=== PATIENT | male | born 1970 | race Caucasian/White ===

== ENCOUNTER → 2017-04-01 | Outpatient (CLI) | payer OTHER ==
[~2017-04-01] MED LIST: MULT-506 PO; OMEG10007 PO; probiotic PO
[2017-04-01 11:03] LABS: ALT/SGPT 28 U/L (12-78); AST/SGOT 24 U/L (15-37); BLOOD UREA NITROGEN 18 mg/dl (7-18); BUN/CREATININE RATIO 15.3 (10-20); CARBON DIOXIDE 28 mmol/L (21-32); CHLORIDE 106 mmol/L (98-107); CHOLESTEROL 261 mg/dl (0-200); GLUCOSE 87 mg/dl (70-99); POTASSIUM 4.6 mmol/L (3.5-5.1); SODIUM 140 mmol/L (136-145); TRIGLYCERIDES 140 mg/dl (0-150); VERY LOW DENSITY LIPOPROT CALC 28 mg/dl
[2017-04-01 11:07] LABS: ALB/GLOB RATIO 1.9 (0.9-2); ALKALINE PHOSPHATASE 78 U/L (45-117); CHOLESTEROL/HDL RATIO 5.1; HDL CHOLESTEROL 51 mg/dl; LDL CHOLESTEROL CALCULATED 182 mg/dl
[2017-04-01 11:55] LABS: CALCIUM 9.5 mg/dl (8.5-10.1)
== END | disposition home or self-care (01) ==
LOC: C.LABBC 09:02
PROVIDERS: ATTEND Physician Assistant Medical
DX: Z00.00 Encounter for general adult medical examination without abnormal findings (principal); E78.5 Hyperlipidemia, unspecified

== ENCOUNTER → 2017-12-14 | Day surgery (SDC) | payer OTHER ==
[2017-11-30 14:34] VITALS: BMI 27.0
[~2017-12-14] VITALS: Ht 172.7 cm; Wt 82.7 kg
[~2017-12-14] MED LIST changes: +LIDOCAINE HCL 2% 2 ML VIAL (20MG/ML) ONE; +MISCCAP80 PO; -MULT-506 PO; +ONDANSETRON INJ 2 MG/ML 2 ML VIAL ONE; +PROPOFOL IV EMULSION 10 MG/ML 20 ML VIAL IV ONE; +SODIUM CHLORIDE 0.9% 500ML 500 ML IV ONE; -probiotic PO
[2017-12-14 14:35] VITALS: Ht 172.7 cm; Wt 82.7 kg
[2017-12-14 14:48] VITALS: TEMP 37
--- NOTE | 2017-12-14 15:02 | Endo History and Physical ---
History & Physical Date of Service: Dec 14, 2017. Chief Complaint: occ rectal bleeding Referring Physician: Dr. Vik Mcgee History of Present Illness 47 yo CM who presents for colonoscopy secondary to rectal bleeding. Past Surgical History Hx Cardiac Surgery: No Hx Internal Defibrillator: No Hx Pacemaker: No Hx Abdominal Surgery: No Hx of Implantable Prosthesis: No Hx Post-Op Nausea and Vomiting: Yes Hx Cancer Surgery: No Hx Thoracic Surgery: No Hx Orthopedic: Yes (RT KNEE MENISCUS REPAIR) Hx Urinary Tract Surgery: Yes (VASECTOMY AND REVERSAL) Family History None Social History Smoking Status: Never Smoker Hx Substance Use: No Hx Alcohol Use: Yes (12 DRINKS WEEKLY) Allergies Coded Allergies: No Known Allergies (Unverified , 12/14/17) Current Medications Reported Home Medications Medications Dose Route/Sig Max Daily Dose Days Date Category Reardan-3 (Fish Oil) 1 Ea Cap 1 Cap PO QPM 11/30/17 Reported Probiotic (Probiotic Product) 1 Cap Cap 1 Cap PO QPM 11/30/17 Reported Vital Signs Weight (Kilograms): 82.73 Height (Feet): 5 Height (Inches): 8 Date Time Temp Pulse Resp B/P (MAP) Pulse Ox O2 Delivery O2 Flow Rate FiO2 12/14/17 14:48 37 73 18 134/79 (97) 99 Room Air Physical Exam General Appearance: WD/WN, no apparent distress Respiratory/Chest: Auscultation: breath sounds normal Cardiovascular: Heart Auscultation: RRR Abdomen: Bowel Sounds: normal Inspection & Palpation: soft, non-distended, no tenderness, guarding & rebound Assessment and Plan Assessment: 47 yo CM who presents for colonoscopy secondary to rectal bleeding. Plan: Proceed with colonoscopy.
--- NOTE | 2017-12-14 15:24 | Discharge Instructions ---
Endoscopy Patient Instructions Date / Procedure(s) Performed Dec 14, 2017. Colonoscopy Allergy Information Coded Allergies: No Known Allergies (Unverified , 12/14/17) Discharge Date / Findings Dec 14, 2017. Internal hemorrhoids Medication Instructions OK to resume all medications today as prescribed Reported Home Medications Medications Dose Route/Sig Max Daily Dose Days Date Category [place]-3 (Fish Oil) 1 Ea Cap 1 Cap PO QPM 11/30/17 Reported Probiotic (Probiotic Product) 1 Cap Cap 1 Cap PO QPM 11/30/17 Reported Provider Instructions Activity Restrictions - No exercising or heavy lifting for 24 hours. - Do not drink alcohol the day of the procedure. - Do not drive a car or operate machinery until the day after the procedure. - Do not make any important decisions or sign important papers in 24 hours after the procedure. Following Day: - Return to full activity which may include returning to work/school. Diet Start your diet with liquids and light foods (jello, soup, juice, toast). Then eat your usual diet if not nauseated. Treatment For Common After Affects For mild abdominal pain, bloating, or excessive gas: - Rest - Eat lightly - Lie on right side Follow-Up Information Follow-up with Dr. Vik Mcgee as scheduled Anesthesia Information What You Should Know You have had a procedure that required some medicine to reduce anxiety and discomfort. This treatment is called moderate sedation. After receiving the treatment, you may be sleepy, but you will be able to breathe on your own. The effects of the treatment may last for several hours. Follow these instructions along with Activity/Diet recommendations noted above: * Do NOT do anything where dizziness or clumsiness would be dangerous. * Rest quietly at home today, then you can be up and about tomorrow. * Have a responsible person stay with you the rest of today. * You may have had an I.V. today. If so, you may take the dressing off later today. Recommendations Call your doctor if: * Trouble breathing * Continuous vomiting for more than 24 hours * Temperature above 101 degrees * Severe abdominal pain or bloating * Pain not relieved by pain medicine ordered * There is increased drainage or redness from any incision * A large amount of rectal bleeding greater than 2-3 tablespoons. (If you had a polyp/s removed or have hemorrhoids, a small amount of blood - from the rectum is to be expected.) * You have any unanswered questions or concerns. IN THE EVENT OF A SERIOUS EMERGENCY, GO TO THE NEAREST EMERGENCY ROOM Your discharge instructions were prepared by provider Main Siu. Patient Instructions Signature Page Alex Dunn Patient (or Guardian) Signature/Date: I have read and understand the instructions given to me by my caregivers. Caregiver/RN/Doctor Signature/Date: The above-named patient and/or guardian has received patient instructions on this date. + Original Patient Signature Page (only) stays with chart. Please make copy for patient.
--- NOTE | 2017-12-14 15:28 | GI REPORT ---
Procedure Date: 12/14/2017 3:04 PM Procedure: Colonoscopy Indications: Rectal bleeding Medicines: Monitored Anesthesia Care Complications: No immediate complications. Estimated Blood Loss: Estimated blood loss: none. Procedure: Pre-Anesthesia Assessment: - Prior to the procedure, a History and Physical was performed, and patient medications and allergies were reviewed. The patient's tolerance of previous anesthesia was also reviewed. The risks and benefits of the procedure and the sedation options and risks were discussed with the patient. All questions were answered, and informed consent was obtained. Prior Anticoagulants: The patient has taken no previous anticoagulant or antiplatelet agents. ASA Grade Assessment: II - A patient with mild systemic disease. After reviewing the risks and benefits, the patient was deemed in satisfactory condition to undergo the procedure. After I obtained informed consent, the scope was passed under direct vision. Throughout the procedure, the patient's blood pressure, pulse, and oxygen saturations were monitored continuously. The Scope was introduced through the anus and advanced to the terminal ileum. The colonoscopy was performed without difficulty. The patient tolerated the procedure well. The quality of the bowel preparation was good. The terminal ileum, ileocecal valve, appendiceal orifice, and rectum were photographed. Findings: The perianal and digital rectal examinations were normal. Non-bleeding internal hemorrhoids were found during retroflexion. The hemorrhoids were small. The exam was otherwise without abnormality. Impression: - Non-bleeding internal hemorrhoids. - The examination was otherwise normal. - No specimens collected. Recommendation: - Resume previous diet. - Continue present medications. - Repeat colonoscopy in 10 years for surveillance. - Return to primary care physician as previously scheduled. Main Siu, DO 12/14/2017 3:27:57 PM This report has been signed electronically. Note Initiated On: 12/14/2017 3:04 PM I attest to the content of the Intraoperative Record and orders documented therein, exceptions below
--- NOTE | 2017-12-14 15:51 | Anesthesiology Progress Note ---
Anesthesia Post Op Note Date & Time Dec 14, 2017 at 15:51 Vital Signs Pain Intensity: 0 Vital Signs Past 12 Hours Date Time Temp Pulse Resp B/P (MAP) Pulse Ox O2 Delivery O2 Flow Rate FiO2 12/14/17 15:42 68 16 129/85 (100) 98 Room Air 12/14/17 15:27 68 16 102/68 (79) 95 Room Air 12/14/17 14:48 37 73 18 134/79 (97) 99 Room Air Notes Mental Status: alert / awake / arousable, participated in evaluation Pt Amnestic to Procedure: Yes Nausea / Vomiting: adequately controlled Pain: adequately controlled Airway Patency, RR, SpO2: stable & adequate BP & HR: stable & adequate Hydration State: stable & adequate Anesthetic Complications: no major complications apparent
[2017-12-14 15:57] VITALS: BP 126/77; PULSE 58; O2SAT 98
== END | disposition home or self-care (01) ==
LOC: C.GI 14:17
PROVIDERS: ATTEND Internal Medicine
DX: K62.5 Hemorrhage of anus and rectum (principal); K64.8 Other hemorrhoids

== ENCOUNTER → 2018-04-07 | Outpatient (CLI) | payer OTHER ==
[~2018-04-07] MED LIST changes: -LIDOCAINE HCL 2% 2 ML VIAL (20MG/ML) ONE; -ONDANSETRON INJ 2 MG/ML 2 ML VIAL ONE; -PROPOFOL IV EMULSION 10 MG/ML 20 ML VIAL IV ONE; -SODIUM CHLORIDE 0.9% 500ML 500 ML IV ONE
[2018-04-07 11:19] LABS: BASO % 0.6 %; BASO ABS # 0.02 K/uL (0-0.2); EOS % 0.6 %; EOS ABS # 0.02 K/uL (0-0.5); HEMATOCRIT 41.5 % (42-52); HEMOGLOBIN 14.2 g/dL (14.0-18.0); LYMPH ABS # 1.13 K/uL (1.2-3.4); MEAN CELL VOLUME 91.8 fL (80-100); MEAN CORPUSCULAR HEMOGLOBIN 31.4 pg (25-34); MEAN CORPUSCULAR HGB CONC 34.2 g/dl (32-36); MONO % 8.8 %; NEUT ABS # 1.95 K/uL (1.4-6.5); PLATELET COUNT 252 K/uL (130-400); RED CELL DISTRIBUTION WIDTH CV 12.7 % (11.5-14.5); RED CELL DISTRIBUTION WIDTH SD 42.3 fL (36.4-46.3); WHITE BLOOD COUNT 3.42 K/uL (4.8-10.8)
[2018-04-07 11:49] LABS: ALBUMIN 4.1 gm/dl (3.4-5.0); ALKALINE PHOSPHATASE 104 U/L (45-117); ALT/SGPT 27 U/L (12-78); AST/SGOT 30 U/L (15-37); BLOOD UREA NITROGEN 14 mg/dl (7-18); CALCIUM 8.6 mg/dl (8.5-10.1); CARBON DIOXIDE 26 mmol/L (21-32); CHOLESTEROL 219 mg/dl (0-200); GLUCOSE 80 mg/dl (70-99); LDL CHOLESTEROL CALCULATED 148 mg/dl; POTASSIUM 4.4 mmol/L (3.5-5.1); SODIUM 137 mmol/L (136-145); TOTAL PROTEIN 6.9 gm/dl (6.4-8.2)
== END | disposition home or self-care (01) ==
LOC: C.LABBC 08:30
PROVIDERS: ATTEND Internal Medicine
DX: Z00.00 Encounter for general adult medical examination without abnormal findings (principal); E78.5 Hyperlipidemia, unspecified; R03.0 Elevated blood-pressure reading, without diagnosis of hypertension; I73.00 Raynaud's syndrome without gangrene

== ENCOUNTER 2020-12-20 12:37 | Inpatient (IN) ==
--- NOTE | 2020-12-20 12:44 | Emergency Department Note ---
Impression & Plan Vertebral artery dissection, Transient visual loss of left eye ED Provider Note NAME: ELIANA MCCLURE AGE: 50 SEX: M : 1970 ARRIVES VIA: Walk-In INFORMANT: Patient, ED PROVIDER(S): John Boone MD Chief Complaint: Visual disturbance, loss of vision HPI: Patient does present with concern for loss of vision in the temporal aspect of his left eye. The patient states that this occurred about 20 minutes ago and has since resolved and improved over the same time period. The patient denies any fevers chills chest pain shortness of breath nausea or vomiting. Patient denies any headache. The patient states he may have some very mild nonspecific neck discomfort but states he did do a kettle grimaldo workout yesterday. The patient states he does do [employer] but had no complaints yesterday. The patient denies any numbness tingling or weakness. The patient does use contact lenses. Patient denies any eye pain double vision or blurry vision. No prior history of seizures. Patient denies any recent head trauma. Patient does have a history of hypertension hyperlipidemia. Patient does not take any medications other than supplemental fish oil for hyperlipidemia. Patient does not use any tobacco but has approximate 12 drinks per week. Remote history of childhood migraines which she grew out of. Patient states this does not feel like a migraine. Patient denies any floaters or flashes in his vision. ROS: See HPI for pertinent positives and negatives. A total of 10 systems were reviewed and otherwise negative. Past medical history: See below Surgical history: See below Social history: See below Physical Exam: GENERAL: Wearing a mask. NAD, non-toxic. EYE EXAM: Normal conjunctiva. PERRL, no anisocoria and EOM's grossly intact w/o pain. No APD, 20/25 bilaterally, no obvious hyphema or hypopyon. No proptosis or periorbital edema or erythema. No visual field deficits. Central vision is normal. NECK: Supple, no nuchal rigidity, no adenopathy, non-tender. No signs of meningismus. LUNGS: Clear to auscultation. Normal chest wall mechanics. HEART: NSR, no MRG. ABDOMEN: Abdomen soft, non-tender, normo-active bowel sounds, no masses, no rebound or guarding. BACK: No CVA TTP. SKIN: No rashes and no bruising. UPPER EXTREMITIES: Upper extremities are grossly normal. LOWER EXTREMITIES: Grossly normal, no edema. NEURO EXAM: A&O x3, cranial nerves II-XII grossly intact, normal speech, moves all 4 extremities on command w/o issue. Differential diagnoses: Infection, dehydration, metabolic abnormality, hypo/hyperglycemia, electrolyte disturbance, anemia, hypoxia, cardiac sources, intracerebral event, toxicologic, neurologic,conjunctivitis, trauma, corneal abrasion, hyphema, glaucoma, iritis, corneal ulcer, dendrite, CRAO, CRVO, vitreous detachment, retinal detachment, as well as other pathologies. Course: Patient was seen and evaluated the bedside. Full history physical exam was performed. EKG: Indication: Vision loss Normal sinus rhythm, rate of 61, normal intervals, left axis deviation, T wave inversion in lead III, no ST changes. Imaging Studies: Radiology results as stated below per my review in the radiologist's interpretation: CT head/brain wo con CLINICAL HISTORY: L eye lateral hemianopsia, transient COMPARISON STUDY: No previous studies for comparison. TECHNIQUE: Axial CT of the brain is performed from the vertex to the skull base. IV contrast was not administered for this examination. A dose lowering technique was utilized adhering to the principles of ALARA. CT DOSE: FINDINGS: No intra or extra-axial mass lesions are visualized. There is no CT evidence of acute cortical infarction. There is no evidence of midline shift. There is no acute hemorrhage. No calvarial fractures are visualized. There is no evidence of pathologic ventricular dilatation. There is no evidence of acute sinusitis IMPRESSION: No acute intracranial findings ACT 112: Negative or not required by law. Electronically signed by: John Villalta M.D. 12/20/2020 2:26 PM Dictated: 12/20/20 1422 Transcribed: 12/20/[address] angio head w con CLINICAL HISTORY: L eye lateral hemianopsia, transient TECHNIQUE: CT angiography of the head was performed in a dynamic helical fashion during intravenous administration of 120 cc of Optiray 320. MIP imaging was performed. A dose lowering technique was utilized adhering to the principles of ALARA. CT DOSE: 1209.39 mGy.cm COMPARISON STUDY: No previous studies for comparison. FINDINGS: There are no lesion suspicious for aneurysm. There are no major intracranial branch occlusions. The dural venous sinuses appear patent. There is a contour deformity of the right vertebral artery at the C2 level suspicious for dissection. There is a left maxillary sinus retention cyst IMPRESSION: 1. No evidence of aneurysm 2. 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 ACT 112: Negative or not required by law. Electronically signed by: John Villalta M.D. 12/20/2020 2:34 PM Dictated: 12/20/20 1431 Transcribed: 12/20/[address] angio neck with con CLINICAL HISTORY: L eye lateral hemiL eye lateral hemianopsiaanopsia COMPARISON STUDY: No previous studies for comparison. TECHNIQUE: CT angiography was performed from the aortic arch to the skull base. MIP imaging was performed. The patient was scanned in a dynamic helical fashion during intravenous administration of 120 cc of Optiray 320. A dose lowering technique was utilized adhering to the principles of ALARA. CT DOSE: Technique: CT angiogram of the carotid and vertebral arteries was obtained using intravenous contrast and 3-D reconstruction. NASCET criteria was utilized. Findings: There is mild ectasia of descending thoracic aorta which measures 36 mm. The right carotid revealed no evidence of aneurysm and no evidence of dissection. There is no evidence of hemodynamic significant stenosis. The left carotid revealed no evidence of hemodynamic significant stenosis. There is no evidence of aneurysm. There is no evidence of dissection. There is no evidence of hemodynamically significant vertebral stenosis. There is a caliber change of the distal right vertebral artery at the C2 and C1 level have a configuration suspicious for a vertebral artery dissection. IMPRESSION: 1. No evidence of hemodynamically significant carotid stenosis 2. Caliber change with angular margins of the distal right vertebral artery at the C2 and C1 levels, suspicious for a vertebral artery dissection ACT 112: Negative or not required by law. Electronically signed by: John Villalta M.D. 12/20/2020 2:31 PM Dictated: 12/20/20 1426 Transcribed: 12/20/20 1426 MRI OF THE BRAIN WITHOUT CONTRAST CLINICAL HISTORY: Visual loss. Possible right vertebral artery dissection COMPARISON STUDY: CT scan performed the same day FINDINGS: Sagittal T1, axial diffusion, proton density and T2 weighted axial, coronal FLAIR, and axial T1-weighted images were acquired. No intra or extra-axial mass lesions are visualized Axial diffusion-weighted images reveal no evidence of acute or subacute infarcti on. There is no evidence of ventricular dilatation. Proton density T2-weighted and FLAIR images reveal no significant intraparenchymal signal abnormalities. Thin section sequences through the C2 level, confirm the presence of a right vertebral artery dissection. Inflammatory changes are present within the left maxillary sinus. IMPRESSION: 1. No evidence of intracranial mass on this noncontrast study 2. No evidence of acute or subacute infarction 3. This study confirms the presence of a right vertebral artery dissection at the C2 level. ACT 112: Negative or not required by law. Electronically signed by: John Villalta M.D. 12/20/2020 5:44 PM Dictated: 12/20/201741 Transcribed: 12/20/201741 Cardiac monitoring: An order was placed for continuous cardiac monitoring. The monitor shows a rate of 70 with sinus rhythm. MDM: Patient does present with concern for transient left-sided vision loss. Blood work was obtained along with an EKG troponin chest x-ray CT of the head and CT angiography of the head neck. Patient has an NIH of 0 on presentation. EKG nonischemic. Patient has a normal white count H&H and platelet count. Coags unremarkable. The patient CT that is negative. CT angiography is did show concern for right- sided vertebral dissection. I did speak with neurology Dr. Fernandez who stated that antiplatelet versus heparin treatment may be equivocal. He stated that if there were signs seen for acute stroke on MRI of the consider the heparin but if it is negative for stroke he would only consider antiplatelet therapy. He did recommend baby aspirin currently. I did speak with the on-call hospitalist and the patient was admitted to Dr. Clay MD [facility]. MRI shows no evidence of acute or subacute infarction or mass. It did confirm the right vertebral artery dissection. Past Med/Surg History Medical History History of esophageal reflux Surgical History H/O arthroscopic knee surgery H/O vasectomy Family History Father Coronary heart disease Hypertension Dyslipidemia Mother Breast cancer Dyslipidemia Ovarian cancer Brother Dyslipidemia Social History Smoking Status: Never smoker Hx Alcohol Use: Yes Hx Substance Use: No Preferred Language: Scottish marital status: Current Living Situation: Spouse current occupational status: employed Feels Safe at Home: Yes Allergies Allergies Allergy/AdvReac Type Severity Reaction Status Date / Time No Known Allergies Allergy Unverified 12/20/20 13:23 Home Meds Home Medications Medication Instructions Recorded Confirmed No Known Home Medications 10/03/19 12/20/20 Results & Data (ED) Vital Signs Vital Signs - 24 hr 12/20/20 12:40 12/20/20 12:58 12/20/20 13:11 Temperature 36.6 C Temperature Source Oral Pulse Rate 67 65 Pulse Rate [Left Finger] 70 Pulse Rate from SpO2 Sensor 65 Pulse Rhythm Regular Pulse Rhythm [Left Finger] Regular Pulse Strength Normal Pulse Strength [Left Finger] Normal Respiratory Rate 18 17 20 Respiratory Effort / Characteristics Non-Labored Spontaneous Non-Labored Respiratory Depth Normal Normal Respiratory Pattern Regular Regular Blood Pressure 162/85 H 139/86 Blood Pressure [Right Arm] 139/86 Blood Pressure Mean 110 103 Blood Pressure Mean [Right Arm] 103 Blood Pressure Position Sitting Blood Pressure Position [Right Arm] Sitting Pulse Oximetry 100 97 98 Oxygen Delivery Method Room Air Room Air Sepsis Recent Fever Within 48 Hours No Sepsis New/Unexplained Change in Mental Status No Sepsis Action Taken by Nursing No Action Required 12/20/20 13:50 12/20/20 17:19 Temperature Temperature Source Pulse Rate 63 Pulse Rate [Left Finger] Pulse Rate from SpO2 Sensor 64 82 Pulse Rhythm Pulse Rhythm [Left Finger] Pulse Strength Pulse Strength [Left Finger] Respiratory Rate 20 Respiratory Effort / Characteristics Respiratory Depth Respiratory Pattern Blood Pressure 130/80 130/84 Blood Pressure [Right Arm] Blood Pressure Mean 96 99 Blood Pressure Mean [Right Arm] Blood Pressure Position Blood Pressure Position [Right Arm] Pulse Oximetry 97 98 Oxygen Delivery Method Sepsis Recent Fever Within 48 Hours Sepsis New/Unexplained Change in Mental Status Sepsis Action Taken by Residential Medications Current Medication List: was personally reviewed by me Laboratory Data Attestation: I reviewed the patient's lab results. Result diagrams: 12/20/20 13:06 12/20/20 14:00 Lab Results 12/20/20 12/20/20 12/20/20 Range/Units 13:03 13:06 13:06 WBC 4.87 (4.8-10.8) K/uL RBC 4.50 L (4.7-6.1) M/uL Hgb 14.8 (14.0-18.0) g/dL POC Hgb (14.0-18.0) g/dl Hct 42.0 (42-52) % POC Hct (42-52) % MCV 93.3 (80-100) fL MCH 32.9 (25-34) pg MCHC 35.2 (32-36) g/dL RDW Std Deviation 42.1 (36.4-46.3) fL RDW Coeff of Gabriel 12.4 (11.5-14.5) % Plt Count 278 (130-400) K/uL MPV 10.2 (7.4-10.4) fL Immature Gran % (Auto) 0.0 % Neut % (Auto) 56.7 % Lymph % (Auto) 34.9 % [place] % (Auto) 7.4 % Eos % (Auto) 0.4 % Baso % (Auto) 0.6 % Neut # (Auto) 2.76 (1.4-6.5) K/uL Lymph # (Auto) 1.70 (1.2-3.4) K/uL [place] # (Auto) 0.36 (0.11-0.59) K/uL Eos # (Auto) 0.02 (0-0.5) K/uL Baso # (Auto) 0.03 (0-0.2) K/uL Immature Gran # (Auto) 0.00 (0.00-0.02) K/uL PT 11.1 (9.0-12.0) Seconds INR 1.1 (0.9-1.1) APTT 27.7 (21.0-31.0) Seconds PTT Ratio 1.0 POC Sodium (135-144) mmol/L Sodium (136-145) mmol/L POC Potassium (3.3-5.0) mmol/L Potassium (3.5-5.1) mmol/L POC Chloride (101-112) mmol/L Chloride (98-107) mmol/L Carbon Dioxide (21-32) mmol/L POC Total CO2 (24-31) mmol/L Anion Gap (3-11) POC Anion Gap (16-25) mmol/L POC BUN (7-18) mg/dl BUN (7-18) mg/dl Creatinine (0.6-1.4) mg/dl POC Creatinine (0.6-1.3) mg/dl Est Cr Clr Drug Dosing ml/min Est GFR ( Amer) Est GFR (Non-Af Amer) BUN/Creatinine Ratio (10-20) Glucose (70-99) mg/dl POC Glucose 92 (70-99) mg/dl POC Glucose (other) (70-99) mg/dl Calcium (8.5-10.1) mg/dl POC Ioniz Calcium Edy (1.12-1.32) mmol/l Magnesium (1.8-2.4) mg/dl Total Bilirubin (0.2-1) mg/dl AST (15-37) U/L ALT (12-78) U/L Alkaline Phosphatase (45-117) U/L Troponin I (0-0.045) ng/ml Total Protein (6.4-8.2) gm/dl Albumin (3.4-5.0) gm/dl Globulin (2.5-4.0) gm/dl Albumin/Globulin Ratio (0.9-2) COVID-19 Eval Order SARS-CoV-2, RNA, NAAT (NEGATIVE) 12/20/20 12/20/20 12/20/20 Range/Units 14:00 14:07 17:20 WBC (4.8-10.8) K/uL RBC (4.7-6.1) M/uL Hgb (14.0-18.0) g/dL POC Hgb 12.9 L (14.0-18.0) g/dl Hct (42-52) % POC Hct 38 L (42-52) % MCV (80-100) fL MCH (25-34) pg MCHC (32-36) g/dL RDW Std Deviation (36.4-46.3) fL RDW Coeff of Gabriel (11.5-14.5) % Plt Count (130-400) K/uL MPV (7.4-10.4) fL Immature Gran % (Auto) % Neut % (Auto) % Lymph % (Auto) % [place] % (Auto) % Eos % (Auto) % Baso % (Auto) % Neut # (Auto) (1.4-6.5) K/uL Lymph # (Auto) (1.2-3.4) K/uL [place] # (Auto) (0.11-0.59) K/uL Eos # (Auto) (0-0.5) K/uL Baso # (Auto) (0-0.2) K/uL Immature Gran # (Auto) (0.00-0.02) K/uL PT (9.0-12.0) Seconds INR (0.9-1.1) APTT (21.0-31.0) Seconds PTT Ratio POC Sodium 141 (135-144) mmol/L Sodium 141 (136-145) mmol/L POC Potassium 4.8 (3.3-5.0) mmol/L Potassium (3.5-5.1) mmol/L POC Chloride 106 (101-112) mmol/L Chloride 112 H (98-107) mmol/L Carbon Dioxide 24 (21-32) mmol/L POC Total CO2 25 (24-31) mmol/L Anion Gap 5.0 (3-11) POC Anion Gap 16.0 (16-25) mmol/L POC BUN 18 (7-18) mg/dl BUN 13 (7-18) mg/dl Creatinine 0.89 (0.6-1.4) mg/dl POC Creatinine 0.8 (0.6-1.3) mg/dl Est Cr Clr Drug Dosing 106.9 ml/min Est GFR ( Amer) 117.2 Est GFR (Non-Af Amer) 101.1 BUN/Creatinine Ratio 15.0 (10-20) Glucose 78 (70-99) mg/dl POC Glucose (70-99) mg/dl POC Glucose (other) 79 (70-99) mg/dl Calcium 8.0 L (8.5-10.1) mg/dl POC Ioniz Calcium Edy 1.07 L (1.12-1.32) mmol/l Magnesium (1.8-2.4) mg/dl Total Bilirubin 0.6 (0.2-1) mg/dl AST (15-37) U/L ALT 26 (12-78) U/L Alkaline Phosphatase 61 (45-117) U/L Troponin I < 0.015 (0-0.045) ng/ml Total Protein 6.4 (6.4-8.2) gm/dl Albumin 3.6 (3.4-5.0) gm/dl Globulin 2.8 (2.5-4.0) gm/dl Albumin/Globulin Ratio 1.3 (0.9-2) COVID-19 Eval [facility] SARS-CoV-2, RNA, NAAT (NEGATIVE) 12/20/20 Range/Units 17:20 WBC (4.8-10.8) K/uL RBC (4.7-6.1) M/uL Hgb (14.0-18.0) g/dL POC Hgb (14.0-18.0) g/dl Hct (42-52) % POC Hct (42-52) % MCV (80-100) fL MCH (25-34) pg MCHC (32-36) g/dL RDW Std Deviation (36.4-46.3) fL RDW Coeff of Gabriel (11.5-14.5) % Plt Count (130-400) K/uL MPV (7.4-10.4) fL Immature Gran % (Auto) % Neut % (Auto) % Lymph % (Auto) % [place] % (Auto) % Eos % (Auto) % Baso % (Auto) % Neut # (Auto) (1.4-6.5) K/uL Lymph # (Auto) (1.2-3.4) K/uL [place] # (Auto) (0.11-0.59) K/uL Eos # (Auto) (0-0.5) K/uL Baso # (Auto) (0-0.2) K/uL Immature Gran # (Auto) (0.00-0.02) K/uL PT (9.0-12.0) Seconds INR (0.9-1.1) APTT (21.0-31.0) Seconds PTT Ratio POC Sodium (135-144) mmol/L Sodium (136-145) mmol/L POC Potassium (3.3-5.0) mmol/L Potassium (3.5-5.1) mmol/L POC Chloride (101-112) mmol/L Chloride (98-107) mmol/L Carbon Dioxide (21-32) mmol/L POC Total CO2 (24-31) mmol/L Anion Gap (3-11) POC Anion Gap (16-25) mmol/L POC BUN (7-18) mg/dl BUN (7-18) mg/dl Creatinine (0.6-1.4) mg/dl POC Creatinine (0.6-1.3) mg/dl Est Cr Clr Drug Dosing ml/min Est GFR ( Amer) Est GFR (Non-Af Amer) BUN/Creatinine Ratio (10-20) Glucose (70-99) mg/dl POC Glucose (70-99) mg/dl POC Glucose (other) (70-99) mg/dl Calcium (8.5-10.1) mg/dl POC Ioniz Calcium Edy (1.12-1.32) mmol/l Magnesium (1.8-2.4) mg/dl Total Bilirubin (0.2-1) mg/dl AST (15-37) U/L ALT (12-78) U/L Alkaline Phosphatase (45-117) U/L Troponin I (0-0.045) ng/ml Total Protein (6.4-8.2) gm/dl Albumin (3.4-5.0) gm/dl Globulin (2.5-4.0) gm/dl Albumin/Globulin Ratio (0.9-2) COVID-19 Eval Order SARS-CoV-2, RNA, NAAT NEGATIVE (NEGATIVE) Administered Medications Discontinued Medications Aspirin (Aspirin Chew 324 Mg) 81 mg PO NOW STA Stop: 12/20/20 14:49 Last Admin: 12/20/20 17:47 Dose: Not Given Documented by: [id number] Aspirin (Aspirin 81 Mg Chew) Confirm Administered Dose 81 mg .ROUTE .STK-MED ONE Stop: 12/20/20 17:46 Last Admin: 12/20/20 17:47 Dose: 81 mg Documented by: [id number] Gadobutrol (Gadobutrol 65ml Vial) 8.5 ml IV ONCE ONE Stop: 12/20/20 17:37 Last Admin: 12/20/20 17:36 Dose: 8.5 ml Documented by: [id number] Lorazepam (Ativan) 1 mg in 2 mls @ 2 mls/min IV NOW STA Stop: 12/20/20 15:46 Last Admin: 12/20/20 15:55 Dose: 2 mls/min Documented by: [id number] Calcium Gluconate 2,000 mg/ (Sodium Chloride) 70 mls @ 280 mls/hr IV NOW STA Stop: 12/20/20 17:05 Last Admin: 12/20/20 17:43 Dose: 280 mls/hr Documented by: [id number] Ioversol (Optiray 320 125ml) 120 ml IV ONCE ONE Stop: 12/20/20 14:17 Last Admin: 12/20/20 14:17 Dose: 120 ml Documented by: [id number] Discharge Plan Visit Data Chief Complaint: Visual Disturbance Stated Complaint: LOSS OF VISION ED Provider: John Boone Discharge Problem: Vertebral artery dissection, Transient visual loss of left eye Forms Stand Alone Forms: [facility] [address] [facility] Prescriptions Prescriptions: No Action No Known Home Medications RF: 0
[2020-12-20 13:34] LABS: Basophils # (auto) 0.03 K/uL (0-0.2); Basophils % (auto) 0.6 %; Eosinophils # (auto) 0.02 K/uL (0-0.5); Eosinophils % (auto) 0.4 %; Hemoglobin 14.8 g/dL (14.0-18.0); Lymphocytes % (auto) 34.9 %; Mean Corpuscular Hemoglobin 32.9 pg (25-34); Mean Corpuscular Hgb Conc 35.2 g/dL (32-36); Mean Corpuscular Volume 93.3 fL (80-100); Mean Platelet Volume 10.2 fL (7.4-10.4); Monocytes # (auto) 0.36 K/uL (0.11-0.59); Monocytes % (auto) 7.4 %; Neutrophils # (auto) 2.76 K/uL (1.4-6.5); Neutrophils % (auto) 56.7 %; Platelet Count 278 K/uL (130-400); RDW Coefficient of Variation 12.4 % (11.5-14.5); RDW Standard Deviation 42.1 fL (36.4-46.3); White Blood Count 4.87 K/uL (4.8-10.8)
[2020-12-20 13:47] LABS: INR 1.1 (0.9-1.1); Partial Thromboplastin Time 27.7 Seconds (21.0-31.0); Prothrombin Time 11.1 Seconds (9.0-12.0)
[2020-12-20] MEDS ORDERED: OPTIRAY 320 125ml IV ONE (14:16)
[2020-12-20 14:20] LABS: iSTAT Creatinine 0.8 mg/dl (0.6-1.3); iSTAT Hemoglobin 12.9 g/dl (14.0-18.0); iSTAT Ionized Calcium 1.07 mmol/l (1.12-1.32); iSTAT Potassium 4.8 mmol/L (3.3-5.0)
--- NOTE | 2020-12-20 14:27 | CT Scan Report ---
CT head/brain wo con CLINICAL HISTORY: L eye lateral hemianopsia, transient COMPARISON STUDY: No previous studies for comparison. TECHNIQUE: Axial CT of the brain is performed from the vertex to the skull base. IV contrast was not administered for this examination. A dose lowering technique was utilized adhering to the principles of ALARA. CT DOSE: FINDINGS: No intra or extra-axial mass lesions are visualized. There is no CT evidence of acute cortical infarc tion. There is no evidence of midline shift. There is no acute hemorrhage. No calvarial fractures ar e visualized. There is no evidence of pathologic ventricular dilatation. There is no evidence of acute sinusitis IMPRESSION: No acute intracranial findings ACT 112: Negative or not required by law. Electronically signed by: John Villalta M.D. 12/20/2020 2:26 PM
--- NOTE | 2020-12-20 14:32 | CT Scan Report ---
CT angio neck with con CLINICAL HISTORY: L eye lateral hemiL eye lateral hemianopsiaanopsia COMPARISON STUDY: No previous studies for comparison. TECHNIQUE: CT angiography was performed from the aortic arch to the skull base. MIP imaging was perfo rmed. The patient was scanned in a dynamic helical fashion during intravenous administration of 120 c c of Optiray 320. A dose lowering technique was utilized adhering to the principles of ALARA. CT DOSE: Technique: CT angiogram of the carotid and vertebral arteries was obtained using intravenous contrast and 3-D reconstruction. NASCET criteria was utilized. Findings: There is mild ectasia of descending thoracic aorta which measures 36 mm. The right carotid revealed no evidence of aneurysm and no evidence of dissection. There is no evidenc e of hemodynamic significant stenosis. The left carotid revealed no evidence of hemodynamic significant stenosis. There is no evidence of an eurysm. There is no evidence of dissection. There is no evidence of hemodynamically significant vertebral stenosis. There is a caliber change of the distal right vertebral artery at the C2 and C1 level have a configuration suspicious for a verteb ral artery dissection. IMPRESSION: 1. No evidence of hemodynamically significant carotid stenosis 2. Caliber change with angular margins of the distal right vertebral artery at the C2 and C1 levels, suspicious for a vertebral artery dissection ACT 112: Negative or not required by law. Electronically signed by: John Villalta M.D. 12/20/2020 2:31 PM
--- NOTE | 2020-12-20 14:35 | CT Scan Report ---
CT angio head w con CLINICAL HISTORY: L eye lateral hemianopsia, transient TECHNIQUE: CT angiography of the head was performed in a dynamic helical fashion during intravenous a dministration of 120 cc of Optiray 320. MIP imaging was performed. A dose lowering technique was util ized adhering to the principles of ALARA. CT DOSE: 1209.39 mGy.cm COMPARISON STUDY: No previous studies for comparison. FINDINGS: There are no lesion suspicious for aneurysm. There are no major intracranial branch occlusi ons. The dural venous sinuses appear patent. There is a contour deformity of the right vertebral artery at the C2 level suspicious for dissection. There is a left maxillary sinus retention cyst IMPRESSION: 1. No evidence of aneurysm 2. 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 ACT 112: Negative or not required by law. Electronically signed by: John Villalta M.D. 12/20/2020 2:34 PM
[2020-12-20 14:39] LABS: Alanine Aminotransferase 26 U/L (12-78); Albumin Level 3.6 gm/dl (3.4-5.0); Blood Urea Nitrogen 13 mg/dl (7-18); Carbon Dioxide 24 mmol/L (21-32); Chloride 112 mmol/L (98-107); Creatinine Clr Calc Pharmacy 106.9 ml/min; Est GFR (African American) 117.2; Est GFR (Non-African American) 101.1; Glucose 78 mg/dl (70-99); Sodium 141 mmol/L (136-145)
[2020-12-20 14:44] LABS: Albumin Globulin Ratio 1.3 (0.9-2); Alkaline Phosphatase 61 U/L (45-117); Bilirubin,Total 0.6 mg/dl (0.2-1); Globulin 2.8 gm/dl (2.5-4.0); Total Protein 6.4 gm/dl (6.4-8.2); Troponin I < 0.015 ng/ml (0-0.045)
[2020-12-20] MEDS ORDERED: ASPIRIN CHEW 324 MG PO STA (14:48)
[2020-12-20] MEDS ORDERED: CALCIUM GLUCONATE 10% 10 ML VIAL IV STA ×2 (15:38→16:41)
[2020-12-20] MEDS ORDERED: LORazepam 1 MG/2 ML VIAL IV PRN (15:45)
[2020-12-20] MEDS ORDERED: LORazepam 1 MG/2 ML VIAL IV STA (15:45)
--- NOTE | 2020-12-20 15:58 | History & Physical Report ---
Date of Service December 20, 2020 Assessment & Plan (1) Vertebral artery dissection: Patient with HLD risk factor for CVA Risk factors for dissection- ? migraines - MRI brain and MRA of neck performed along with CTA of the head/neck- no embolic stroke effects noted - ASA for therapy for now - pre HTN listed as history from PCP however unable to find bp readings that meet criteria and not pharmacalogically managed. - follow while in house. BP currently likely related to anxiety (sedation required for completion of MRI studies.) - Neurological intact at this time. (2) Hyperlipidemia: - last reviewed in 2019 - ASCVD risk 3% - lipid panel in morning- initiate lipid lowering medication if indicated (3) TIA (transient ischemic attack): History of Present Illness Primary Care Provider: Vik Mcgee MD 50 YOM with history of ? borderline HTN, leukopenia, ? HLD, Raynaud, migraines which he aborts once a month with advil (were worse when he was younger), never smoke and 2 beers a day for 5/7 days/week. 20Dec2020 patient performed new kettle-grimaldo exercise with 60 pounds squatting to standing and lifting the kettle-grimaldo up to chin level and repeat. After exercising, the patient showered and got in car to go to work. He then experienced a posterior right sided headache immediately followed by hot flushing sensation, which required him to roll down the window to cool off. Those symptoms lasted about 30 minutes and felt fine the rest of the day, there was no association of any other symptoms or vision changes. Today (21Dec2020) he was getting clothes out of the dryer when he lost vision in his left eye on the temporal side. The patient denies any numbness tingling or weakness, n/v, or other associated symptoms. The patient does use contact lenses. Patient denies any eye pain double vision or blurry vision. No prior history of seizures. Patient denies any recent head trauma. Patient will be admitted for observation, placed on telemetry, started on Aspirin. Neurology and Vascular consults. Allergies Allergy/AdvReac Type Severity Reaction Status Date / Time No Known Allergies Allergy Unverified 12/20/20 13:23 Home Medications Medication Instructions Recorded Confirmed Type aspirin 81 mg PO QAM 30 Days #30 tab 12/21/20 Rx Past Med/Surg History Medical History (Updated 12/21/20 @ 12:03 by Alessandro Williamson) Borderline hypertension H/O migraine History of esophageal reflux Hyperlipidemia Raynaud's phenomenon without gangrene TIA (transient ischemic attack) Surgical History H/O arthroscopic knee surgery H/O vasectomy Family History Father Coronary heart disease Hypertension Dyslipidemia Mother Breast cancer Dyslipidemia Ovarian cancer Brother Dyslipidemia Social History Smoking Status: Never smoker Second Hand Exposure: No; Hx Alcohol Use: Yes Alcohol type: beer Hx Substance Use: No Preferred Language: Grenadian Communication Ability: Effective Car Stower Required: No Beliefs That Will Affect Care: None marital status: Current Living Situation: Spouse current occupational status: employed Feels Safe at Home: Yes Assistive Devices: Glasses Review of Systems Review of Systems: REVIEW OF SYSTEMS: Constitutional: No fever, sweats or chills Eyes: (+) diplopia, no worsening or blurred vision ENT: normal hearing, no trouble swallowing Respiratory: No cough, sputum, dyspnea at rest or on exertion Cardiovascular: No chest pain, tightness or palpitations Abdomen: No pain, nausea, vomiting, diarrhea or constipation Musculoskeletal: No joint pain, calf pain, swelling, no history of spinal manipulations Neurologic: No weakness, numbness/tingling, or balance problems Psychiatric: No anxiety or depression Skin: No rash or itch Physical Exam Physical Exam: PHYSICAL EXAM: General: awake, alert, no apparent distress Head: Normocephalic, atraumatic ENT: PERRL, EOMI, no pharyngeal exudate, mucous membranes moist Neuro: AAO x 3, speech clear and appropriate, strength intact bilaterally 5/5, sensation intact and equal all extremities, no pronator drift Chest: equal rise and fall of the chest, no accessory muscle use, no heaves or thrills, Clear to auscultation, on room air, Cardiac: Regular rate and rhythm, telemetry reviewed, skin warm dry, cap refill <3 seconds, peripheral pulses +2 no JVD, no murmur, no JVD, no edema GI: NABS x 4 quadrants, soft, nontender to palpation, no rebound, guarding or tenderness : Spontaneously voiding, no pain, no CVA tenderness, Extremities: Normal inspection, no peripheral edema or erythema, calfs nontender to palpation Psych: Normal mood and affect Skin: no rash or erythema Results & Data Results & Data ([facility]) Vital Signs (Past 12 Hours) Vital Signs Temp Pulse Pulse Resp BP BP Pulse Ox 12/20/20 13:50 63 20 130/80 97 12/20/20 13:11 70 20 139/86 98 12/20/20 12:58 65 17 139/86 97 12/20/20 12:40 36.6 C 67 18 162/85 H 100 Laboratory Results Abnormal lab results 12/20/20 12/20/20 12/20/20 Range/Units 13:06 14:00 14:07 RBC 4.50 L (4.7-6.1) M/uL POC Hgb 12.9 L (14.0-18.0) g/dl POC Hct 38 L (42-52) % Chloride 112 H (98-107) mmol/L Calcium 8.0 L (8.5-10.1) mg/dl POC Ioniz Calcium Edy 1.07 L (1.12-1.32) mmol/l Diagnostic Findings CT head/brain wo con CLINICAL HISTORY: L eye lateral hemianopsia, transient COMPARISON STUDY: No previous studies for comparison. TECHNIQUE: Axial CT of the brain is performed from the vertex to the skull base. IV contrast was not administered for this examination. A dose lowering technique was utilized adhering to the principles of ALARA. CT DOSE: FINDINGS: No intra or extra-axial mass lesions are visualized. There is no CT evidence of acute cortical infarction. There is no evidence of midline shift. There is no acute hemorrhage. No calvarial fractures are visualized. There is no evidence of pathologic ventricular dilatation. There is no evidence of acute sinusitis IMPRESSION: No acute intracranial findings CT angio head w con CLINICAL HISTORY: L eye lateral hemianopsia, transient TECHNIQUE: CT angiography of the head was performed in a dynamic helical fashion during intravenous administration of 120 cc of Optiray 320. MIP imaging was performed. A dose lowering technique was utilized adhering to the principles of ALARA. CT DOSE: 1209.39 mGy.cm COMPARISON STUDY: No previous studies for comparison. FINDINGS: There are no lesion suspicious for aneurysm. There are no major intracranial branch occlusions. The dural venous sinuses appear patent. There is a contour deformity of the right vertebral artery at the C2 level suspicious for dissection. There is a left maxillary sinus retention cyst CT angio neck with con CLINICAL HISTORY: L eye lateral hemiL eye lateral hemianopsiaanopsia COMPARISON STUDY: No previous studies for comparison. TECHNIQUE: CT angiography was performed from the aortic arch to the skull base. MIP imaging was performed. The patient was scanned in a dynamic helical fashion during intravenous administration of 120 cc of Optiray 320. A dose lowering technique was utilized adhering to the principles of ALARA. CT DOSE: Technique: CT angiogram of the carotid and vertebral arteries was obtained using intravenous contrast and 3-D reconstruction. NASCET criteria was utilized. Findings: There is mild ectasia of descending thoracic aorta which measures 36 mm. The right carotid revealed no evidence of aneurysm and no evidence of dissection. There is no evidence of hemodynamic significant stenosis. The left carotid revealed no evidence of hemodynamic significant stenosis. There is no evidence of aneurysm. There is no evidence of dissection. There is no evidence of hemodynamically significant vertebral stenosis. There is a caliber change of the distal right vertebral artery at the C2 and C1 level have a configuration suspicious for a vertebral artery dissection. IMPRESSION: 1. No evidence of hemodynamically significant carotid stenosis 2. Caliber change with angular margins of the distal right vertebral artery at the C2 and C1 levels, suspicious for a vertebral artery dissection MRI OF THE BRAIN WITHOUT CONTRAST CLINICAL HISTORY: Visual loss. Possible right vertebral artery dissection COMPARISON STUDY: CT scan performed the same day FINDINGS: Sagittal T1, axial diffusion, proton density and T2 weighted axial, coronal FLAIR, and axial T1-weighted images were acquired. No intra or extra-axial mass lesions are visualized Axial diffusion-weighted images reveal no evidence of acute or subacute infarction. There is no evidence of ventricular dilatation. Proton density T2-weighted and FLAIR images reveal no significant intraparenchymal signal abnormalities. Thin section sequences through the C2 level, confirm the presence of a right vertebral artery dissection. Inflammatory changes are present within the left maxillary sinus. IMPRESSION: 1. No evidence of intracranial mass on this noncontrast study 2. No evidence of acute or subacute infarction 3. This study confirms the presence of a right vertebral artery dissection at the C2 level. ECG Additional Comments: Normal sinus rhythm Left axis deviation Code Status & VTE Plan VTE Prophylaxis Plan VTE Prophylaxis will be ordered: Yes Supervising Physician Co-Signing Physician Notes Attending Attestation & Admission Note: Pt seen and examined, chart reviewed, admission care plan d/w PANTERA Cox. I agree w/ the burgos components of his admission documentation. Healthy 50yo male presents with brief episode of visual field cut just prior to presentation. About 24 hours prior to this the patient had done a very heavy weight lifting work-out at the gym. Shortly after this work-out he had a 30-minute episode of severe right-sided occipital headache/pain. The headache was associated with a warm, flushed feeling. Symptoms resolved on their own. The visual field disturbance, however, prompted him to come to the ER. During his work-up in the ER he was found to have a right-sided vertebral artery dissection. PMH, PSH, allergies, meds, sochx, famhx - reviewed vitals - BPs mildly elevated, otherwise afebrile gen - NAD neck - no bruits heart - RRR, s1 s2, no murmur lungs - CTA b/l abd - soft NT ND BS+ ext - no edema neuro - no facial droop; no dysmetria finger/nose/finger maneuver; strength 5/5 x 4 exts; visual packer full in all quadrants by direct confrontation; EOMI, PERRL labs reviewed CTA head/neck - reviewed MRI brain / MRA neck - reviewed A/P: 1. right sided occipital region headache - resolved; was likely 2nd to vertebral artery dissection on right 2. TIA 2nd to right-sided vertebral artery dissection; symptoms localized to right EXTRACT MIXER territory; MRI brain neg for stroke 3. right-sided vertebral artery dissection likely 2nd to heavy weight lifting work-out telemetry aspirin 81mg daily; studies show no clear-cut advantage of using anticoagulation over aspirin lipids in am neuro consult in am PT, OT, speech avoid heavy lifting/strenuous work-outs - defer time period of this to neurology no h/o connective tissue disease personally or in family questions answered during my bedside visit Alessandro Williamson MD PG Care Time/CCT Total # of Minutes Spent Total Time Spent with Patient: Total time spent is greater than 50% in coordination of care (as documented) at patient's floor/unit and/or counseling patient: Coding Level of Care Code 61698 Initial Inpt Care Lvl 3 Diagnoses Vertebral artery dissection I77.74 Hyperlipidemia E78.5 Hyperlipidemia type: unspecified TIA (transient ischemic attack) G45.9 (1) Hyperlipidemia Hyperlipidemia type: unspecified Qualified Code(s): E78.5 - Hyperlipidemia, unspecified
[2020-12-20] MEDS ORDERED: CALCIUM GLUCONATE 10% 2,000 MG in SODIUM CHLORIDE 0.9% 50 ML IV STA (16:51)
[2020-12-20] MEDS ORDERED: GADOBUTROL 65ML VIAL IV ONE (17:36)
[2020-12-20] MEDS ORDERED: ASPIRIN 81 MG CHEW ONE (17:45)
--- NOTE | 2020-12-20 17:46 | Magnetic Resonance Report ---
MRI OF THE BRAIN WITHOUT CONTRAST CLINICAL HISTORY: Visual loss. Possible right vertebral artery dissection COMPARISON STUDY: CT scan performed the same day FINDINGS: Sagittal T1, axial diffusion, proton density and T2 weighted axial, coronal FLAIR, and axial T1-weigh pino images were acquired. No intra or extra-axial mass lesions are visualized Axial diffusion-weighted images reveal no evidence of acute or subacute infarction. There is no evidence of ventricular dilatation. Proton density T2-weighted and FLAIR images reveal no significant intraparenchymal signal abnormaliti es. Thin section sequences through the C2 level, confirm the presence of a right vertebral artery dissect ion. Inflammatory changes are present within the left maxillary sinus. IMPRESSION: 1. No evidence of intracranial mass on this noncontrast study 2. No evidence of acute or subacute infarction 3. This study confirms the presence of a right vertebral artery dissection at the C2 level. ACT 112: Negative or not required by law. Electronically signed by: John Villalta M.D. 12/20/2020 5:44 PM
--- NOTE | 2020-12-20 17:49 | Magnetic Resonance Report ---
NECK MRA HISTORY: suspected vertebral artery discretion C2 and C1, visual disturbances. TECHNIQUE: Tono-[id number]-wrpveq and gadolinium-enhanced MRA of the neck was performed both before and after the intravenous administration of contrast. All measurements were calculated based on NASCET criteri a. The patient was administered 8.5 cc of intravenous Gadavist COMPARISON STUDY: None. FINDINGS: There is no evidence of carotid artery stenosis dissection or occlusion. There is a dissection of the right vertebral artery at the C1 and C2 levels Irregularity the proximal basilar artery is felt to be secondary to a small fenestration. IMPRESSION: 1. No evidence of carotid artery stenosis 2. Dissection of the right vertebral artery at the C1 and C2 levels. ACT 112: Negative or not required by law. Electronically signed by: John Villalta M.D. 12/20/2020 5:48 PM
[2020-12-20] MEDS ORDERED: ACETAMINOPHEN 325 MG TAB PO PRN (19:11)
[2020-12-20] MEDS ORDERED: ONDANSETRON INJ 2 MG/ML 2 ML VIAL IV PRN (19:11)
[2020-12-20] MEDS ORDERED: POLYETHYLENE (MIRALAX) 17 GM PACK PO PRN (19:11)
[2020-12-21 06:50] LABS: Calcium 8.8 mg/dl (8.5-10.1); Creatinine Clr Calc Pharmacy 78.7 ml/min; Est GFR (African American) 90.5; Est GFR (Non-African American) 78.1; Magnesium 2.4 mg/dl (1.8-2.4); Potassium 4.4 mmol/L (3.5-5.1)
[2020-12-21] MEDS ORDERED: ASPIRIN 81 MG ECTAB PO SCH (09:00)
--- NOTE | 2020-12-21 09:47 | Neurology Consultation ---
Date of Consultation December 21, 2020 Assessment & Plan (1) Vertebral artery dissection: Right vertebral artery dissection at the C2 and C1 levels. Patient may have experienced an associated episode of transient ischemia to the right occipital lobe/right SADDLE MAKER the following day. No evidence of acute or subacute infarct on MRI. He is currently asymptomatic and neurologically intact. Studies comparing antiplatelet medication versus anticoagulants for extracranial carotid or vertebral dissections for secondary stroke risk reduction have not revealed a statistically significant difference between the 2 therapies. Because he is neurologically stable and his MRI is negative for evidence of acute or subacute stroke I would favor antiplatelet therapy and have recommended that he continue with daily low-dose aspirin. He will need to follow-up with his primary care physician for ongoing monitoring of blood pressure. Additional counseling given to the patient regarding avoidance of strenuous physical activities such as weightlifting, push-ups, and shoveling snow. He may participate in low intensity activities such as walking for the next few months. I would also recommend a follow-up MR angiogram of the head and neck in 3 to 6 months. I expect this dissection to heal on its own. He should remain on daily low-dose aspirin during this timeframe although it may be discontinued in the future with evidence of radiographic improvement and clinical stability. I would also suggest obtaining an outpatient consultation with a neurovascular specialist at [facility] for a second opinion regarding his management going forward. History of Present Illness Reason for Consultation: Vertebral artery dissection Requesting Physician: PANTERA Hodgson Attending Physician: Richy Winston DO History of Present Illness The patient is a 50-year old male who presented to the emergency department yesterday afternoon for further evaluation of transient left-sided vision loss. His symptoms began about 20 minutes prior to his assessment in the emergency department and resolved upon arrival. On Tuesday, the day prior to his emergency department assessment, he had been performing exercises with a 60 pound kettle grimaldo. After exercising, he noted a right posterior head and neck pain with associated flushing. The symptoms resolved in about [address] of the head and CTA of the head and neck revealed evidence of a distal right vertebral artery dissection at the C2 and C1 levels. I had discussed his case with Dr. Boone over the phone yesterday afternoon and recommended treatment with aspirin and admission to the [facility] for further evaluation and management. A follow-up MRI of the brain and MRA of the neck have been completed. There is no evidence of acute or subacute stroke. The right vertebral artery dissection was confirmed. I reviewed the images as well as the radiologist's interpretation of these tests and agree. This morning, the patient is without complaint. No recurrence of headache or vision disturbance. Furthermore, he denies experiencing any other associated neurologic symptom such as diplopia, dysarthria, dysphagia, vertigo, numbness, or weakness. This patient blood pressure was modestly elevated at the time of presentation although has subsequently normalized. Patient's past medical history is notable for episodic migraines and Raynaud's. He does not take any prescription medications as an outpatient. 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 Allergies Allergy/AdvReac Type Severity Reaction Status Date / Time No Known Allergies Allergy Unverified 12/20/20 13:23 Home Medications Medication Instructions Recorded Confirmed Type No Known Home Medications 10/03/19 12/20/20 History Patient History Medical History History of esophageal reflux Surgical History H/O arthroscopic knee surgery H/O vasectomy Family History Father Coronary heart disease Hypertension Dyslipidemia Mother Breast cancer Dyslipidemia Ovarian cancer Brother Dyslipidemia Social History Smoking Status: Never smoker Second Hand Exposure: No; Do You Dip or Chew Tobacco: No; Hx Alcohol Use: Yes Alcohol type: beer Hx Substance Use: No Preferred Language: Croatian Communication Ability: Effective Paint 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 Required: No Beliefs That Will Affect Care: None marital status: Current Living Situation: Spouse current occupational status: employed Other Information That Helps Us Care for You: No Feels Safe at Home: Yes Safety Concerns: Feels Safe At This Time Assistive Devices: Glasses Review of Systems Constitutional: no fever and no chills Eyes: as per Subjective / HPI Ear, Nose, Mouth, Throat: no hearing loss Respiratory: no cough and no dyspnea Cardiovascular: no chest pain and no palpitations Gastrointestinal: no nausea and no vomiting Genitourinary: no dysuria Musculoskeletal: as per Subjective / HPI and + neck pain Integumentary: no rash and no lesions Neurologic: as per Subjective / HPI and + headache(s); no localized weakness, no loss of sensation and no syncope Psychiatric: no depression and no anxiety Hematologic / Lymphatic: no easy bleeding and no easy bruising Exam (Neuro) Constitutional: well developed and well nourished; no acute distress Eyes: normal visual packer by confrontation, PERRL, normal accommodation and EOM intact bilaterally; no fundoscopic abnormality, no nystagmus and no papilledema Cardiovascular: Vessels: normal carotid upstroke; no carotid bruit Neurologic: Oriented to:: Person, Place and Time Memory: Short Term Intact and Remote Intact Attention: Span Intact and Concentration Intact Language: Naming Objects and Repeating Phrases Speech Fluency: negative Dysarthria Speech Aphasia: negative Aphasia Fund of Knowledge: Current Events, Past History and Vocabulary Cranial Nerves: Normal II (Visual packer full to confrontation, visual acuity normal), III, IV, (Pupils equal round reactive to light and accommodation, eye movements normal), V (Facial sensation intact), VII (There is no facial droop or weakness), VIII (Hearing intact), IX, X (Palate elevates to midline), XI (Shoulder shrug intact) and XII (Tongue protrudes to midline) Motor Strength: Normal Lower Extremities and Normal Upper Extremities; negative Pronator Drift Motor Tone: Normal Lower Extremities and Normal Upper Extremities Muscle Bulk/Involuntary Movements: No Involuntary Movements; negative Muscle Atrophy Sensation: Light Touch Intact, Pain/Temperature Intact, Vibration Intact and Proprioception Intact Coordination: Normal; negative Limited Balance, Dysdiadochokinesia, Finger-Nose Abnormal and Heel-Draper Abnormal Deep Tendon Reflexes: Rt Triceps: 2+, Lt Triceps: 2+, Rt Biceps: 2+, Lt Biceps: 2+, Rt Brachioradialis: 2+, Lt Brachioradialis: 2+, Rt Patellar: 2+, Lt Patellar: 2+, Rt Ankle: 2+ and Lt Ankle: 2+ Special Tests: negative Babinski Present Gait: Normal Station and Gait Results & Data ([facility]) Vital Signs (Past 12 Hours) Vital Signs Temp Pulse Pulse Pulse Resp BP BP 12/21/20 08:00 37.1 C 60 18 137/80 12/21/20 04:00 36.5 C 60 17 114/68 12/20/20 23:31 36.8 C 65 17 121/67 12/20/20 23:18 60 Pulse Ox 12/21/20 08:00 97 12/21/20 04:00 96 12/20/20 23:31 98 12/20/20 23:18 Laboratory Results WBC 4.87, hemoglobin 14.8, hematocrit 42.0, platelet count 278, sodium 141, potassium 4.4, BUN 16, creatinine 1.11, glucose 88, triglycerides 106, cholesterol 235, LDL 154, VLDL 21, HDL 60 Diagnostic Findings Imaging including CT of the head, CT angiography of the head and neck, brain MRI, and MRA of the neck are as described in the history of present illness. I reviewed the images as well as the radiologist's interpretation of these tests. Electrocardiogram reveals sinus bradycardia with sinus arrhythmia, 48 bpm. Coding Level of Care Code 44419 Inpt Consult Level 5 Diagnoses Vertebral artery dissection I77.74
--- NOTE | 2020-12-21 10:17 | Discharge Summary ---
Date of Service December 21, 2020 Admission HPI Per Admitting Provider 50 YOM with history of ? borderline HTN, leukopenia, ? HLD, Raynaud, migraines which he aborts once a month with advil (were worse when he was younger), never smoke and 2 beers a day for 5/7 days/week. 20Dec2020 patient performed new kettle-grimaldo exercise with 60 pounds squatting to standing and lifting the kettle-grimaldo up to chin level and repeat. After exercising, the patient showered and got in car to go to work. He then experienced a posterior right sided headache immediately followed by hot flushing sensation, which required him to roll down the window to cool off. Those symptoms lasted about 30 minutes and felt fine the rest of the day, there was no association of any other symptoms or vision changes. Today (21Dec2020) he was getting clothes out of the dryer when he lost vision in his left eye on the temporal side. The patient denies any numbness tingling or weakness, n/v, or other associated symptoms. The patient does use contact lenses. Patient denies any eye pain double vision or blurry vision. No prior history of seizures. Patient denies any recent head trauma. Patient will be admitted for observation, placed on telemetry, started on Aspirin. Neurology and Vascular consults. Admission Exam Per Admitting Provider General: awake, alert, no apparent distress Head: Normocephalic, atraumatic ENT: PERRL, EOMI, no pharyngeal exudate, mucous membranes moist Neuro: AAO x 3, speech clear and appropriate, strength intact bilaterally 5/5, sensation intact and equal all extremities, no pronator drift Chest: equal rise and fall of the chest, no accessory muscle use, no heaves or thrills, Clear to auscultation, on room air, Cardiac: Regular rate and rhythm, telemetry reviewed, skin warm dry, cap refill <3 seconds, peripheral pulses +2 no JVD, no murmur, no JVD, no edema GI: NABS x 4 quadrants, soft, nontender to palpation, no rebound, guarding or tenderness : Spontaneously voiding, no pain, no CVA tenderness, Extremities: Normal inspection, no peripheral edema or erythema, calfs nontender to palpation Psych: Normal mood and affect Skin: no rash or erythema Principal Diagnosis 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 Discharge Exam Constitutional WD/WN, vitals as above cooperative and comfortable; no acute distress and not ill appearing Eyes PERRL, conjunctivae normal, anicteric sclerae PERRL and EOM intact bilaterally ENMT external ear and nose normal, oropharynx normal Neck normal visual inspection and trachea midline Respiratory normal respiratory effort, lungs clear to auscultation Cardiovascular RRR, no murmur, no edema Gastrointestinal (Abdomen) Percussion/Palpation: abdomen soft; abdomen nontender, no guarding and abdomen not rigid Musculoskeletal Head/Neck/Chest: normocephalic and head atraumatic Spine: no cervical spinal tenderness and no cervical muscular tenderness Extremities: extremities normal to inspection and strength 5/5 throughout muscular build Skin no rashes, warm and dry Neurologic CN's II-XI intact bilaterally, moves all extremities and awake; no focal motor deficits and not confused Speech / Cognition: normal speech, no expressive aphasia and no receptive aphasia Cranial Nerves: PERRL, EOM intact bilaterally, normal facial strength, tongue midline, normal hearing, able to elevate shoulders bilaterally and symmetric palate elevation Psychiatric A+Ox3, euthymic affect Discharge Data Allergies Allergy/AdvReac Type Severity Reaction Status Date / Time No Known Allergies Allergy Unverified 12/20/20 13:23 Consultations 12/20/20 14:50 ED Decision to Admit Stat 12/20/20 19:11 Consult Neurology Routine Consult Vascular Surgery Routine Ordered Studies 12/20/20 12:53 CT angio head w con Stat 1. No evidence of aneurysm 2. 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 CT angio neck with con Stat 1. No evidence of hemodynamically significant carotid stenosis 2. Caliber change with angular margins of the distal right vertebral artery at the C2 and C1 levels, suspicious for a vertebral artery dissection CT head/brain wo con Stat No acute intracranial findings 12/20/20 14:48 MR brain wo con Stat 1. No evidence of intracranial mass on this noncontrast study 2. No evidence of acute or subacute infarction 3. This study confirms the presence of a right vertebral artery dissection at the C2 level. 12/20/20 15:22 MR angio neck wo/w con Stat 1. No evidence of carotid artery stenosis 2. Dissection of the right vertebral artery at the C1 and C2 levels. Hospital Course (1) Vertebral artery dissection: Alex Dunn is a 50 y/o male with history of borderline HTN, Raynaud's, dyslipidemia who presented for CC of left temporal vision loss. He had onset of right posterior headache with odd sensation of feeling warm that lasted about 30 minutes. He notes he did a strenuous kettle grimaldo workout yesterday. He notes that later he developed sudden 10 minute episode of vision loss to his left temporal field. He notes this resolved while en route to ED. He has had no other focal neuro symptoms. Imaging of the Head and Neck with CT/CTA/MRI/MRA diagnosed a Right Vertebral Artery Dissection at the C2 Level. He had an uncomplicated hospital stay. He developed no further neuro symptoms or vision loss. His blood pressure was elevated on ED presentation but other tripathi was 110-130s/80s. His lipid levels weren't significantly elevated and ASCVD score was 3%. Neurology was consulted and saw Mr. Dunn in the hospital. They reinier mmended daily low-dose aspirin. He was advised to follow up with Neurology and also with Primary Care Physician. He will need ongoing monitoring of blood pressure to alleviate a preventable/potential risk factor. There were no indications for starting treatment as no significant elevated BPs minus outlier from presentation to ED. A lipid panel was performed here; Total Cholesterol was 235, LDL 154, HDL 60. Triglycerides 106. Current 10-year ASCVD score was 3.3%. He was advised to avoid strenuous physical activities such as weightlifting, push-ups, and shoveling snow. He is allowed to participate in low intensity activities such as walking for the next few months. Neurology also recommend a follow-up MR angiogram of the head and neck in 3 to 6 months. It is expected that this dissection will heal on its own. He was advised to remain on daily low-dose aspirin during this timeframe, although it may be discontinued in the future with evidence of radiographic improvement and clinical stability. Neurology also suggested obtaining an outpatient consultation with a neurovascular specialist at [facility] for a second opinion regarding management going forward. Total Time Total Time Spent Total Time Spent (In Minutes): 25 mins Total Time Includes: Examination of the Patient and Communication With Other Providers Discharge Plan Discharge Items Patient Disposition: Home - Self-Care Reason For Visit: VERTEBRAL ARTERY DISCECTION Discharge Diagnosis: Right Vertebral Artery Dissection Activity: Per Instructions section Non-emergency contact: Primary Care Provider Call non-emergency contact if: your symptoms worsen and your pain is concerning for you Follow-up/Referrals: Vik Mcgee MD [Primary Care Provider] - Hector Fernandez MD [Physician] - (Please make appointment for 2-3 weeks) Diet: Regular Addtl Attending Provider Instructions: You were seen and evaluated for left lateral vision deficit. This was likely caused by workup findings of right vertebral artery dissection. This will be treated with an anti-platelet drug called Aspirin. You will need to take a low- dose Aspirin daily (81mg). You will need to take this everyday. You will need to follow up with Neurology and also with your Primary Care Darren cowart. Follow-up with your primary care physician for ongoing monitoring of blood pressure. High blood pressure is a preventable risk factor. Avoid strenuous physical activities such as weightlifting, push-ups, and shoveling snow. You participate in low intensity activities such as walking for the next few months. Neurology also recommend a follow-up MR angiogram of the head and neck in 3 to 6 months. It is expected that this dissection will heal on its own. You are advised to remain on daily low-dose aspirin during this timeframe, although it may be discontinued in the future with evidence of radiographic improvement and absence of clinical symptoms. Neurology also suggested obtaining an outpatient consultation with a neurovascular specialist at [facility] for a second opinion regarding management going forward. Referral can be obtained by your Primary Care Physician on hospital follow-up visit. A copy of your hospital medical record will be sent to your Primary Care Physician's Office. If you have return of any vision loss, numbness/weakness of one side of your body, facial droop, problems with speech, or symptoms that are concerning for you, please call 911/return to [facility] ED for evaluation. Pending Studies at Discharge: No Stand-Alone Forms: My [employer] Medications and DC Order Prescriptions: New aspirin 81 mg Tablet,Delayed Release (Dr/Ec) 81 mg PO QAM 30 Days Qty: 30 RF: 1 Discharge Orders: Discharge Order (Routine); Ordered 12/21/20 Ordered By: Armand Aponte Admission Data Admit Date/Time: 12/20/20 15:37 Attending Provider: Richy Winston Admit Provider: Alessandro Williamson Primary Care Provider: Vik Mcgee Other Providers: Alessandro Williamson Brian A. Other Interventions: Discharge Summary Assessment (RN) Last Done: 12/21/20 10:52 Supervising Physician Co-Signing Physician Notes I also saw the patient with the resident physician and confirmed burgos portions of the history and physical examination. I also discussed the case with the neurology email production consultant. I agree with the impression and plan as noted in the resident discharge documentation. Resident Activity Tracking Resident Involvement: Resident Care Provided Care Provided: Adult [facility] Medicine
--- NOTE | 2020-12-21 12:25 | Electrocardiogram Report ---
Test Reason : Blood Pressure : / mmHG Vent. Rate : 061 BPM Atrial Rate : 061 BPM P-R Int : 184 ms QRS Dur : 090 ms QT Int : 406 ms P-R-T Axes : 038 -37 013 degrees QTc Int : 408 ms Normal sinus rhythm Left axis deviation Abnormal ECG No previous ECGs available Confirmed by Ang Serrato ([id number]) on 12/21/2020 12:25:39 PM Referred By: REFERRED SELF Confirmed By:Ang Serrato
--- NOTE | 2020-12-21 12:37 | Electrocardiogram Report ---
Test Reason : Blood Pressure : / mmHG Vent. Rate : 048 BPM Atrial Rate : 048 BPM P-R Int : 190 ms QRS Dur : 086 ms QT Int : 456 ms P-R-T Axes : 073 -31 063 degrees QTc Int : 407 ms Sinus bradycardia with sinus arrhythmia Left axis deviation Abnormal ECG When compared with ECG of 20-DEC-2020 12:58, (unconfirmed) No significant change was found Confirmed by Ang Serrato ([id number]) on 12/21/2020 12:37:34 PM Referred By: REFERRED SELF Confirmed By:Ang Serrato
[2020-12-22 06:05] LABS: Estimated Average Glucose 111 mg/dl; Hemoglobin A1C 5.5 % (4.5-5.6)
== END 2020-12-21 11:43 | disposition home or self-care (01) | DRG 300 ==
LOC: ED 12:37 → SUATTDRO 15:37 → 2S 15:37